=== PATIENT | female | born 1960 | race Caucasian/White ===

== ENCOUNTER 2016-11-28 10:18 | Outpatient (CLI) | payer BC ==
--- NOTE | 2016-11-28 12:34 | RAD ---
CHEST ONE VIEW ABDOMEN TWO VIEWS: History: Abdominal pain. FINDINGS: The heart size is normal. The aorta is tortuous. There is evidence of old granulomatous disease. No focal areas of consolidation, pneumothorax or pleural effusions are seen. No free air or differential fluid levels are seen. The bowel gas pattern is unremarkable. There are degenerative changes in the spine. No acute osseous abnormalities identified. POS: [facility]
== END 2016-11-28 10:19 | disposition home or self-care (01) ==
LOC: RAD-FRANK 10:18
PROVIDERS: ATTEND Nurse Practitioner Family
DX: R10.9 Unspecified abdominal pain (principal); R19.12 Hyperactive bowel sounds; R11.0 Nausea; R63.0 Anorexia
CPT/HCPCS: 36415; 74022; 80053; 81003; 81015; 84443; 85007; 85027; 87086

== ENCOUNTER 2017-09-22 13:41 | Outpatient (CLI) | payer BC | END 2017-09-22 13:42 | disposition home or self-care (01) | LOC: BICMAMMO 13:41 | PROVIDERS: ATTEND Obstetrics & Gynecology | DX: Z12.31 Encounter for screening mammogram for malignant neoplasm of breast (principal) | CPT/HCPCS: 77063; 77067 ==

== ENCOUNTER 2018-01-23 08:14 | Outpatient (CLI) | payer BC ==
--- NOTE | 2018-01-23 10:25 | ULT ---
ULTRASOUND ABDOMEN COMPLETE: HISTORY: Elevated liver enzymes, ICD-10: R74.8 in a 58-year-old female. FINDINGS: The gallbladder has normal wall thickness and has no evidence of gallstones or sludge. The hepatic e chogenicity is normal. The kidneys have normal echogenicity, and there is no hydronephrosis. There is no splenomegaly. There is no abdominal aortic aneurysm. No free fluid is identified. The inferi or vena cava is visualized. The pancreas is visualized, although ultrasound is relatively insensitiv e for pancreatic pathology compared to CT and MRI. There is no biliary dilation. The common duct ca liber is 7 mm. IMPRESSION: 1. Common duct caliber is 7 mm, at the upper limits of normal. 2. Normal sonographic appearance of the liver. 3. Otherwise, no pathology identified. [facility]rid [] POS: [facility]
== END 2018-01-23 08:15 | disposition home or self-care (01) ==
LOC: BICULT 08:14
PROVIDERS: ATTEND Obstetrics & Gynecology
DX: R74.8 Abnormal levels of other serum enzymes (principal)
CPT/HCPCS: 76700

== ENCOUNTER 2018-03-23 07:32 | Day surgery (SDC) | payer BC ==
[2018-03-20 11:26] VITALS: BMI 20.4
[2018-03-23 07:50] LABS: Hemoglobin 12.8 g/dL (12.0-16.0); Mean Corpuscular HGB CONC 33.4 g/dL (32.0-36.0); Mean Corpuscular Hemoglobin 33.8 pg (27.0-31.0); Mean Platelet Volume 8.2 fL (7.4-10.4); Platelet Count 145 thou/uL (130-400); RBC Distribution Width 11.8 % (11.5-14.5); Red Blood Cell (RBC) Count 3.81 mill/uL (4.20-5.40); White Blood Cell (WBC) Count 4.8 thou/uL (4.8-10.8)
[2018-03-23 07:55] LABS: PTT 30.3 SEC (22.9-36.1); Prothrombin Time 12.9 SEC (12.0-14.7)
[2018-03-23] MEDS ORDERED: Fentanyl 100 MCG/2 ML VIAL ONE (08:12)
[2018-03-23] MEDS ORDERED: Lidocaine 1% PF 5 ML VIAL ONE (08:13)
[2018-03-23] MEDS ORDERED: Sodium Bicarbonate 2.5 MEQ/5 ML VIAL ONE (08:13)
[2018-03-23] MEDS ORDERED: Midazolam HCl 2 mg/2 ml Vial ONE (08:13)
[2018-03-23 08:33] VITALS: BP 93/72; TEMP 98.2
--- NOTE | 2018-03-23 11:01 | ULT ---
ULTRASOUND GUIDED RANDOM LIVER BIOPSY: HISTORY: Hemochromatosis of the liver. COMPARISON: 01/23/2018. FINDINGS: Successful ultrasound-guided random liver biopsy. A single 18-gauge core sample was obtained. The sample was placed directly in formalin. No postprocedure complication. TECHNIQUE: Consent was obtained to perform an ultrasound-guided biopsy of the liver. The left hepatic lobe was identified. The skin was prepped and draped in sterile fashion. 1% Lidocaine, buffered with sodium bicarbonate, was used for local anesthesia. Under ultrasound guidance, an 18-gauge core biopsy needl e was advanced into the left hepatic lobe. A single sample was obtained. The patient tolerated the procedure well. No immediate or postprocedure complication. Postprocedure images do not demonstrate any significant perihepatic fluid. IMPRESSION: Successful random liver biopsy of the left hepatic lobe. Final pathologic diagnosis is pending. POS: [facility]
== END 2018-03-23 11:05 | disposition home or self-care (01) ==
LOC: ULT 07:32
PROVIDERS: ATTEND Radiology Diagnostic Radiology
PROC: 0FB23ZX Excision of Left Lobe Liver, Percutaneous Approach, Diagnostic (ICD-10-PCS; principal; 2018-03-23)
DX: E83.119 Hemochromatosis, unspecified (principal); Z87.891 Personal history of nicotine dependence; Z98.890 Other specified postprocedural states
CPT/HCPCS: 36415; 47000; 76942; 85027; 85610; 85730; 88307; 88313; J2001; J2250; J3010

== ENCOUNTER 2019-03-17 09:36 | Outpatient (CLI) | payer BC ==
--- NOTE | 2019-03-17 11:10 | ULT ---
Hepatic ultrasound with duplex evaluation INDICATION: Hereditary hemochromatosis TECHNIQUE: Grayscale, color Doppler and spectral Doppler images were obtained of the liver, gallbladd er, common bile duct, pancreas, right kidney and spleen. COMPARISON: Hepatic ultrasound dated January 23, 2018 FINDINGS: Liver: No focal hepatic lesion is evident. The liver measured 12.7 cm in length. Hepatic vasculature: Left hepatic vein: Appropriate flow. Middle hepatic vein: Appropriate flow. Right hepatic vein: Appropriate flow. Hepatic artery: Hepatopedal flow. Main portal vein: Hepatopedal flow. Right portal vein: Hepatopedal flow. Left portal vein: Hepatopedal flow. Splenic artery: Appropriate flow. Splenic vein: Hepatopedal flow. Aorta: Appropriate flow. IVC: Appropriate flow. Gallbladder: Normal appearing. No sonographic Best sign. Common bile duct: 5.6 mm. Pancreas: Visualized pancreas appears within normal limits. Right kidney: Visualized aspects of the right and left kidney appear within normal limits. Spleen: The spleen measured 10.93cm in length. IMPRESSION: 1. No focal hepatic lesion. Appropriate hepatopedal flow.
== END 2019-03-17 09:37 | disposition home or self-care (01) ==
LOC: BICULT 09:36
PROVIDERS: ATTEND Internal Medicine Gastroenterology
DX: E83.110 Hereditary hemochromatosis (principal)
CPT/HCPCS: 76705

== ENCOUNTER 2020-06-18 11:44 | Emergency (ER) | payer BC ==
[2020-06-18 13:48] LABS: #Monocytes 0.6 thou/uL (0.11-0.59); #Neutrophils 4.7 thou/uL (1.40-6.50); %Basophils 0.2 % (0.0-1.0); %Eosinophils 0.1 % (0.0-10.0); %Lymphocytes 15.3 % (21.0-51.0); %Monocytes 9.4 % (0.0-10.0); %Neutrophils 75.1 % (42.0-75.0); Hemoglobin 15.1 g/dL (12.0-16.0); Mean Corpuscular HGB CONC 34.6 g/dL (32.0-36.0); Mean Corpuscular Hemoglobin 34.6 pg (27.0-31.0); Mean Platelet Volume 8.4 fL (7.4-10.4); Platelet Count 155 thou/uL (130-400); RBC Distribution Width 11.2 % (11.5-14.5); Red Blood Cell (RBC) Count 4.37 mill/uL (4.20-5.40); White Blood Cell (WBC) Count 6.2 thou/uL (4.8-10.8)
[2020-06-18 14:07] LABS: Bacteria/HPF None Seen HPF (None Seen); Bilirubin Negative (Negative); Blood, Urine Trace (Negative); Clarity Clear (Clear); Glucose, Urine (Dipstick) Normal (Negative); Ketone, Urine Negative (Negative); Leukocyte Negative Leu/uL (Negative); Nitrite Negative (Negative); Protein, Urine (Dipstick) Negative (Neg-Trace); RBC/HPF 0-3 HPF (0-3); Specific Gravity, Urine 1.006 (1.002-1.036); Squamous Epithelial 0-3 HPF (0-3); Urobilinogen Normal mg/dL (Less than 2); WBC/HPF 0-3 HPF (0-3)
[2020-06-18 14:09] LABS: ALT (SGPT) 10 U/L (8-55); AST (SGOT) 12 U/L (5-34); Albumin 4.4 g/dL (3.5-5.0); Alkaline Phosphatase 106 U/L (40-110); Anion Gap 13 mmol/L (10-20); BUN (Urea Nitrogen) 8 mg/dL (9.8-20.1); Bilirubin, Total 0.5 mg/dL (0.2-1.2); Calc. Creatinine Clearance 0 mL/min (70-130); Calcium 9.3 mg/dL (7.8-10.44); Carbon Dioxide 25 mmol/L (22-29); Chloride 101 mmol/L (98-107); Globulin 2.5 g/dL (2.4-3.5); Glucose 107 mg/dL (70-105); Potassium 3.2 mmol/L (3.5-5.1); Protein, Total 6.9 g/dL (6.0-8.3); Sodium 136 mmol/L (136-145)
[2020-06-18] MEDS ORDERED: Ketorolac Tromethamine 30 MG/ML VIAL ONE (15:37)
[2020-06-18] MEDS ORDERED: Dexamethasone 10 MG/ML VIAL ONE (15:37)
[2020-06-18 22:30] LABS: SARS-CoV-2 PCR by NAA Not Detected (NotDetected)
== END 2020-06-18 14:03 | disposition home or self-care (01) ==
LOC: ERS 11:44
DX: M54.5 Low back pain (principal); Z20.822 Contact with and (suspected) exposure to COVID-19; F17.290 Nicotine dependence, other tobacco product, uncomplicated
CPT/HCPCS: 36415; 72100; 80053; 81003; 81015; 85025; 87635; 96372; J1100; J1885; U0003; U0005

== ENCOUNTER 2020-06-20 16:05 | Emergency (ER) | payer BC | END 2020-06-20 17:44 | disposition home or self-care (01) | LOC: ERS 16:05 | DX: M46.1 Sacroiliitis, not elsewhere classified (principal); F17.290 Nicotine dependence, other tobacco product, uncomplicated; Z79.899 Other long term (current) drug therapy | CPT/HCPCS: 99283 ==

== ENCOUNTER 2020-06-26 10:56 | Emergency (ER) | payer BC ==
[2020-06-26 12:49] LABS: ALT (SGPT) 9 U/L (8-55); AST (SGOT) 9 U/L (5-34); Alkaline Phosphatase 90 U/L (40-110); Anion Gap 13 mmol/L (10-20); BUN (Urea Nitrogen) 14 mg/dL (9.8-20.1); Bilirubin, Total 0.5 mg/dL (0.2-1.2); Calc. Creatinine Clearance 0 mL/min (70-130); Calcium 8.9 mg/dL (7.8-10.44); Carbon Dioxide 28 mmol/L (22-29); Chloride 101 mmol/L (98-107); Globulin 2.2 g/dL (2.4-3.5); Glucose 120 mg/dL (70-105); Potassium 3.5 mmol/L (3.5-5.1); Protein, Total 6.2 g/dL (6.0-8.3); Sodium 138 mmol/L (136-145)
[2020-06-26 12:50] LABS: CK (CPK) 33 U/L (29-168); CRP (Inflammatory) Less than 0.50 mg/dL (= or < 0.5)
[2020-06-26 13:05] LABS: #Lymphocytes 0.5 thou/uL (1.20-3.40); #Monocytes 0.2 thou/uL (0.11-0.59); #Neutrophils 10.4 thou/uL (1.40-6.50); %Basophils 0.2 % (0.0-1.0); %Eosinophils 0.1 % (0.0-10.0); %Lymphocytes 4.2 % (21.0-51.0); %Monocytes 1.5 % (0.0-10.0); %Neutrophils 94.1 % (42.0-75.0); Hemoglobin 15.2 g/dL (12.0-16.0); MDiff Complete? YES; Macrocytosis SLIGHT = 6-15 cells (100X) (0-5/hpf); Mean Corpuscular HGB CONC 32.5 g/dL (32.0-36.0); Mean Corpuscular Hemoglobin 32.3 pg (27.0-31.0); Mean Corpuscular Volume 99.4 fL (78.0-98.0); Mean Platelet Volume 8.3 fL (7.4-10.4); Platelet Count 106 thou/uL (130-400); Platelet Morphology Comment Appears Decreased; RBC Distribution Width 11.2 % (11.5-14.5); White Blood Cell (WBC) Count 11.1 thou/uL (4.8-10.8)
== END 2020-06-26 16:59 | disposition home or self-care (01) ==
LOC: ERS 10:56
DX: M47.816 Spondylosis without myelopathy or radiculopathy, lumbar region (principal); R10.2 Pelvic and perineal pain; F17.290 Nicotine dependence, other tobacco product, uncomplicated
CPT/HCPCS: 72158; 72197; 80053; 82550; 85025; 85652; 86140

== ENCOUNTER 2020-08-09 09:30 | Outpatient (CLI) | payer BC | END 2020-08-09 09:31 | disposition home or self-care (01) | LOC: BICRAD 09:30 | PROVIDERS: ATTEND Neurological Surgery | DX: M54.16 Radiculopathy, lumbar region (principal); M43.16 Spondylolisthesis, lumbar region | CPT/HCPCS: 72110 ==

== ENCOUNTER 2021-02-06 08:48 | Outpatient (CLI) | payer BC | END 2021-02-06 08:49 | disposition home or self-care (01) | LOC: BICULT 08:48 | PROVIDERS: ATTEND Internal Medicine Gastroenterology | DX: E83.110 Hereditary hemochromatosis (principal); Z86.010 Personal history of colon polyps | CPT/HCPCS: 76705 ==

== ENCOUNTER 2024-09-14 11:43 | Outpatient (CLI) | payer BC | END 2024-09-14 11:44 | disposition home or self-care (01) | LOC: BICMAMMO 11:43 | PROVIDERS: ATTEND Obstetrics & Gynecology | DX: Z13.820 Encounter for screening for osteoporosis (principal); M81.0 Age-related osteoporosis without current pathological fracture | CPT/HCPCS: 77080 ==